=== PATIENT | male | born 1945 | race African-American/Black ===

== ENCOUNTER 2017-08-14 15:50 | Observation (INO) ==
[2017-08-14 17:37] LABS: Basophils % 0.3 %; Eosinophils # 0.2 K/mcL (0.0-0.6); Eosinophils % 2.5 %; Hematocrit 26.3 % (37.5-50.1); Immature Granulocytes % 1.5 % (0-4); Lymphocytes # 1.1 K/mcL (0.6-4.6); Mean Corpuscular HGB Conc 30.4 g/dL (31.6-35.5); Mean Corpuscular Hemoglobin 24.2 pg (28.0-33.3); Mean Corpuscular Volume 79.5 fL (83.0-100.0); Monocytes # 0.5 K/mcL (0.0-1.3); Monocytes % 7.7 %; Neutrophils # 4.2 K/mcL (1.6-8.9); Platelet Count 148 K/mcL (140-400); Red Blood Count 3.31 M/mcL (4.19-5.50); Red Cell Distribution Width 16.4 % (11.5-14.5)
[2017-08-14 17:55] LABS: Calcium 8.7 mg/dL (8.6-10.8); Potassium 4.4 mEq/L (3.5-4.5)
--- NOTE | 2017-08-14 18:06 | Emergency Department Note ---
START Narrative - START START: I examined this patient and my medical decision-making was reviewed with the LEAD MAINTENANCE TECHNICIAN/PA/Advanced Practice Nurse/Resident Physician. I agree with the documented findings, disposition and treatment plan as described except to the extent set forth below. ED attending note: Patient seen with emergency medicine resident Dr. Omar Santoyo. We independently evaluated the patient. We independently had face-to- face contact with the patient. Please see a copy of his note for details of the history and physical, evaluation, management and disposition of this emergency Department patient. Briefly: A 71-year-old -Polish male end-stage renal disease on both peritoneal and hemodialysis weekly sent over by Dr. Schroeder his weft straightener for "blood loss", and some difficulty breathing. Patient has clear lungs. His abdomen is surgically benign and the peritoneal dialysis site is free and clear of infection. Patient will have repeat screening labs. And if need be a recheck of his fecal occult blood stool. Disposition pending.
--- NOTE | 2017-08-14 18:35 | Emergency Department Note ---
Disposition Clinical Impression: Elevated troponin I level, Dyspnea on exertion, ESRD on peritoneal dialysis Anemia Qualifiers: Anemia type: due to chronic kidney disease Chronic kidney disease stage: on chronic dialysis Qualified Code(s): N18.6 - End stage renal disease Disposition: Admitted As Inpatient Condition: Fair Time of Disposition: 20:37 SOB HPI - General Chief Complaint: ED Shortness of Breath/Dyspnea Stated Complaint: RUTH, blood loss per PCP Time Seen by Provider: 08/14/17 17:42 Source: patient Limitations: no limitations Nursing Notes Reviewed: Yes Vital Signs Reviewed: Yes - History of Present Illness 71-year-old male presents secondary to direction from his parenting skills instructor Dr. Schroeder for blood loss anemia. Patient has concerns for possible GI blood loss with the high-risk history of previous colonic polyps that were extremely large 1 year ago that required 4 hours to remove. Patient states he has been having some constipation and some dark stools. Patient is also having some lightheadedness and shortness of breath with exertion. Patient is on peritoneal dialysis daily and hemodialysis every Thursday. Patient denies any fevers chills, nausea, vomiting, diarrhea. Patient denies abdominal pain or chest pain. - Related Data Home Medications Medication Instructions Recorded Confirmed Allopurinol [Zyloprim] 100 mg PO QPM 05/02/15 08/14/17 Amlodipine [Norvasc] 10 mg PO QAM 05/02/15 08/14/17 Calcium Acetate [Phos-LO] 2,001 mg PO TIDWM 05/02/15 08/14/17 Cholecalciferol (Vitamin D3) 1,000 unit PO DAILY 05/02/15 08/14/17 [Vitamin D] Labetalol [Trandate] 200 mg PO BID 05/02/15 08/14/17 Levothyroxine [Synthroid] 137 mcg PO QAM 05/02/15 08/14/17 Pravastatin Sodium 10 mg PO QPM 05/02/15 08/14/17 Furosemide [Lasix] 80 mg PO BID 04/09/17 08/14/17 Losartan Potassium [Cozaar] 50 mg PO DAILY 04/09/17 08/14/17 Calcium Carbonate/Vitamin D3 1 mg PO DAILY 04/28/17 08/14/17 [Oyster Shell 250 mg + Vit D Tb] Epoetin Eagle [Epogen] 2,000 unit IJ QWEEK 04/28/17 08/14/17 Iron Fum/FA/Vit Bcomp,C [Dialyvite 1 each PO DAILY 04/28/17 08/14/17 800 with Iron Tab] Gabapentin [Neurontin] 800 mg PO TID PRN 08/14/17 08/14/17 Allergies Allergy/AdvReac Type Severity Reaction Status Date / Time No Known Allergies Allergy Verified 08/14/17 16:14 All systems ED: reviewed and negative except as stated. Review of Systems: As Per HPI Constitutional: Reports: weakness. Denies: fever Eyes: Reports: vision change (Blurred vision with exertion) ENT ED: Reports: ear pain Cardiovascular: Reports: dyspnea on exertion. Denies: chest pain Respiratory: Denies: cough, dyspnea, wheezes Gastrointestinal: Denies: abdominal pain, nausea, vomiting, diarrhea Genitourinary: Denies: urgency, dysuria, frequency, hematuria Musculoskeletal: Denies: back pain Integumentary: Denies: rash Neurological: Denies: headache Psychiatric: Denies: anxiety Endocrine: Reports: fatigue Past Medical History - Past Medical History Attestation: Yes The following information was validated with the patient. Source: patient Medical history: Reports: arthritis, cancer, dialysis, hypertension, renal disease, other Surgical history: Reports: cataract, thyroidectomy, other Psychiatric history: Reports: no psych history - Social History Smoking Status: Former smoker Smokeless Tobacco Status: No Alcohol use: Reports: none Drug use: Reports: none Physical Exam Vital Signs Temperature 98.6 F 08/14/17 16:10 Pulse Rate 76 08/14/17 16:10 Respiratory Rate 20 08/14/17 16:10 Blood Pressure 167/75 08/14/17 16:10 O2 Sat by Pulse Oximetry 97 08/14/17 16:10 Temperature 98.6 F 08/14/17 16:10 Pulse Rate 76 08/14/17 16:10 Respiratory Rate 20 08/14/17 16:10 Blood Pressure 167/75 08/14/17 16:10 O2 Sat by Pulse Oximetry 97 08/14/17 16:10 Oxygen Delivery Oxygen Delivery Room Air 71-year-old male who is alert and oriented 3 does not appear to be in any acute distress. Patient has no noticeable pallor. Patient has some conjunctival pallor. Patient is able to sit up without lightheadedness but feels short of breath and has lightheadedness when he is walking. Patient nontoxic appearing Vital signs show no abnormalities except for hypertension 167/75. - General Limitations: no limitations General appearance: alert, in no apparent distress - Head Head exam: atraumatic, normocephalic, normal inspection - Eye Eye exam: Present: normal appearance, PERRL, EOMI - ENT ENT exam: normal exam, normal oropharynx, mucous membranes moist - Neck Neck exam: Present: normal inspection, full ROM, trachea midline - Chest Chest inspection: Present: normal inspection, symmetric chest wall rise - Respiratory Respiratory exam: Present: normal lung sounds bilaterally - Cardiovascular Cardiovascular exam: Present: regular rate, normal rhythm, normal heart sounds - Abdominal Exam Abdominal exam: Present: soft, Non-Tender, other (Peritoneal dialysis site shows no signs of inflammation and is clean) Course Vital Signs Temperature 98.6 F 08/14/17 16:10 Pulse Rate 76 08/14/17 16:10 Respiratory Rate 20 08/14/17 16:10 Blood Pressure 167/75 08/14/17 16:10 O2 Sat by Pulse Oximetry 97 08/14/17 16:10 Temperature 98.4 F 08/14/17 21:25 Pulse Rate 78 08/14/17 21:25 Respiratory Rate 16 08/14/17 21:25 Blood Pressure 185/75 08/14/17 21:25 O2 Sat by Pulse Oximetry 99 08/14/17 21:25 Oxygen Delivery Oxygen Delivery Room Air Shortness of Breath/Dyspnea - [facility] Narrative Medical decision making narrative: Patient presents with chronic anemia but is currently symptomatic with lightheadedness and shortness of breath with exertion. Patient has a history of rectal bleeding but currently has a negative fecal occult blood test. Patient's current hemoglobin is 8.0 which is slightly up from 7.7 earlier today. Patient has no visible palpable but has a history of unusual colonic polyps requiring extensive procedures in the past to clear. Patient has been complaining of intermittent dark stools as well. Patient has no elevation of troponin at 0.04 Patient's vitals are currently stable and patient is doing well and is chest pain-free. Patient did not complain of any chest pain around his evaluation. Current plan is for medical admission to the hospital for evaluation. Patient understands and accepts decision for admission. Dr. Evans the hospital except the patient for admission at 2033 hrs. - Lab Data Lab results reviewed: Yes I reviewed the patient's lab results. Lab results narrative: Short CBC 08/14/17 Range/Units 17:29 WBC 6.0 (4.3-11.1) K/mcL Hgb 8.0 L (12.9-16.9) g/dL Hct 26.3 L (37.5-50.1) % Plt Count 148 (140-400) K/mcL Neutrophils # 4.2 (1.6-8.9) K/mcL BMP 08/14/17 Range/Units 17:29 Sodium 142 (136-145) mEq/L Potassium 4.4 (3.5-4.5) mEq/L Chloride 99 (98-109) mEq/L Carbon Dioxide 30 H (19-29) mEq/L BUN 42 H (8-26) mg/dL Creatinine 12.03 H (0.72-1.25) mg/dL Glucose 87 (70-99) mg/dL Calcium 8.7 (8.6-10.8) mg/dL Cardiac Enzymes 08/14/17 Range/Units 17:29 Troponin I 0.04 H* (0-0.03) ng/mL Result diagrams: 08/14/17 17:29 08/14/17 17:29 Lab Results 08/14/17 08/14/17 08/14/17 Range/Units 17:29 17:29 17:29 WBC 6.0 (4.3-11.1) K/mcL RBC 3.31 L (4.19-5.50) M/mcL Hgb 8.0 L (12.9-16.9) g/dL Hct 26.3 L (37.5-50.1) % MCV 79.5 L (83.0-100.0) fL MCH 24.2 L (28.0-33.3) pg MCHC 30.4 L (31.6-35.5) g/dL RDW 16.4 H (11.5-14.5) % Plt Count 148 (140-400) K/mcL MPV 10.0 (9.4-12.4) fL Immature Gran % 1.5 (0-4) % Seg Neutrophils % 70.0 % Lymphocytes % 18.0 % Monocytes % 7.7 % Eosinophils % 2.5 % Basophils % 0.3 % Neutrophils # 4.2 (1.6-8.9) K/mcL Lymphocytes # 1.1 (0.6-4.6) K/mcL Monocytes # 0.5 (0.0-1.3) K/mcL Eosinophils # 0.2 (0.0-0.6) K/mcL Basophils # 0.0 (0.0-0.2) K/mcL Sodium 142 (136-145) mEq/L Potassium 4.4 (3.5-4.5) mEq/L Chloride 99 (98-109) mEq/L Carbon Dioxide 30 H (19-29) mEq/L BUN 42 H (8-26) mg/dL Creatinine 12.03 H (0.72-1.25) mg/dL Est GFR ( Amer) 5 L (> 60) Est GFR (Non-Af Amer) 4 L (> 60) BUN/Creatinine Ratio 3 L (6-26) Glucose 87 (70-99) mg/dL Calculated Osmolality 304 H (280-300) Calcium 8.7 (8.6-10.8) mg/dL Magnesium 2.1 (1.6-2.6) mg/dL Troponin I 0.04 H* (0-0.03) ng/mL Stool Occult Blood (Negative) Blood Type Antibody Screen 08/14/17 08/14/17 Range/Units 17:29 18:30 WBC (4.3-11.1) K/mcL RBC (4.19-5.50) M/mcL Hgb (12.9-16.9) g/dL Hct (37.5-50.1) % MCV (83.0-100.0) fL MCH (28.0-33.3) pg MCHC (31.6-35.5) g/dL RDW (11.5-14.5) % Plt Count (140-400) K/mcL MPV (9.4-12.4) fL Immature Gran % (0-4) % Seg Neutrophils % % Lymphocytes % % Monocytes % % Eosinophils % % Basophils % % Neutrophils # (1.6-8.9) K/mcL Lymphocytes # (0.6-4.6) K/mcL Monocytes # (0.0-1.3) K/mcL Eosinophils # (0.0-0.6) K/mcL Basophils # (0.0-0.2) K/mcL Sodium (136-145) mEq/L Potassium (3.5-4.5) mEq/L Chloride (98-109) mEq/L Carbon Dioxide (19-29) mEq/L BUN (8-26) mg/dL Creatinine (0.72-1.25) mg/dL Est GFR ( Amer) (> 60) Est GFR (Non-Af Amer) (> 60) BUN/Creatinine Ratio (6-26) Glucose (70-99) mg/dL Calculated Osmolality (280-300) Calcium (8.6-10.8) mg/dL Magnesium (1.6-2.6) mg/dL Troponin I (0-0.03) ng/mL Stool Occult Blood Negative (Negative) Blood Type O POSITIVE Antibody Screen NEGATIVE - Radiology Data Radiology results reviewed: Yes I reviewed the patient's radiology results. Chest X-Ray 08/14/17 17:10 IMPRESSION: Stable study. D/ / Lakesha Kelley Cha, MD / Lakesha Kelley Cha, MD Interpreting Provider: Lakesha Kelley Cha, MD - EKG Data EKG attestation: Yes I reviewed and interpreted this EKG. EKG results narrative: EKG taken at summer at 1741 hrs. shows sinus rhythm at a rate of [address] elevations or depressions and a leads, a QRS widening or QT prolongation. EKG does show some left ventricular hypertrophy was no previous EKG for comparison.
[2017-08-14 19:14] LABS: Magnesium 2.1 mg/dL (1.6-2.6)
--- NOTE | 2017-08-14 21:18 | Internal Med History&Physical ---
<Monique Gao - Last Filed: 08/14/17 23:28> Date of Encounter: 08/14/17 Time of Encounter: 21:17 Assessment and Plan (1) Dyspnea Current visit: No Status: Acute Patient reports exertional shortness of breathe for 6 days with associated weakness. He admits dysuria(chronic) and runny nose. Denies fever, chills, cough , wheeze, abdominal pain, chest pain, orthopnea. Unclear etiology. Maybe viral respiratory. SBP unlikley but will have sample sent in AM ESRD with anemia. Hgb 8.0 which is baseline stool occult negative x2 CXR- stable Cath 04/28/2017 showed no artery blockage. EF 65% Upon PD tomorrow, sample of peritoneal fluid needs to be sent for testing viral panel ordered orthostatics PT/OT tele monitoring urinalysis Qualifiers: Dyspnea type: dyspnea on exertion Qualified Code(s): R06.09 - Other forms of dyspnea (2) Anemia Current visit: Yes Status: Acute ESRD with chronic anemia. Hgb 8.0 which is baseline. Upon admission it was 7.7 stool occult negative x2 Patient reported 3x he had a "dark stool" in last week. He takes dialyvite which could cause dark stool. Denies hematachezia and syncope. He has internal and external hemorroids. no active bleeding colonoscopy 10/16/[address] Melendez showed 5 total non bleeding polyps that were removed. monitor H&H monitor for bleeding Qualifiers: Anemia type: due to chronic kidney disease Chronic kidney disease stage: on chronic dialysis Qualified Code(s): N18.6 - End stage renal disease; D63.1 - Anemia in chronic kidney disease; D63.1 - Anemia in chronic kidney disease; Z99.2 - Dependence on renal dialysis; Z99.2 - Dependence on renal dialysis; Z99.2 - Dependence on renal dialysis; Z99.2 - Dependence on renal dialysis (3) ESRD on peritoneal dialysis Current visit: Yes Status: Chronic ESRD on peritoneal dialysis and HD on Wednesdays Nephrology following SCr 12 Upon PD tomorrow, sample of peritoneal fluid needs to be sent for testing (4) Elevated troponin I level Current visit: Yes Status: Acute elevated troponin 0.04 most likely secondary to ESRD. Patient denies chest pain. EKG showed NSR, no ST changes, and left ventricular hypertrophy. trend troponin (5) Hypertension Current visit: Yes Status: Acute History of hypertension 167/75 continue to monitor continue home medications Qualifiers: Hypertension type: essential hypertension Qualified Code(s): I10 - Essential (primary) hypertension (6) Hyperlipidemia Current visit: Yes Status: Acute continue home medications Qualifiers: Qualified Code(s): E78.5 - Hyperlipidemia, unspecified (7) DVT prophylaxis Current visit: No Status: Acute ambulate TID Internal Medicine - H&P: HPI Chief complaint: shortness of breathe Admitted From: Emergency Dept Plans for Post Hospital Care: Home History of present illness: Mr. Kothari is a 71 year old male with a past medical history of CKD on dialysis , HTN, HLD, diabetes, left nephrectomy due to cancer who presented to [facility] ED complaining of shortness of breathe that began last Thursday (6 days ago). It is worsened by exertion and better with rest. He was at his nephrology appointment with Dr. Schroeder whom insisted he go to ED because his Hgb had decreased and he was short of breathe. He admits weakness, dizziness , pain with defection, and melena 3xs, dysuria(chronic). He reports that he does have external hemorrhoids and takes dialyvite. He denied hematechezia, syncope, chest pain, wheezing, cough, abdominal pain, nausea, vomiting, fever, chills, orthopnea. He reported that his last colonoscopy 10/16/[address] Melendez had 5 non bleeding polyps that were resected and internal hemorrhoids. He stated he had another polyp that he had to go to [place] to have removed due to the large size. He has hemodialysis on Wednesdays and has a peritoneal dialysis catheter in place which he uses every night. He denies recent travel, sick contacts. In ED stool occult test negative. Hgb was 7.7 and now 8. Afebrile, WBC WNL. EKG showed NSR, no ST changes, and left ventricular hypertrophy. Past Med Surg Social Fam HX - Past Medical History Medical history: arthritis, cancer, dialysis, hyperlipidemia, hypertension, renal disease, other Psychiatric history: no psych history - Past Surgical History Surgical History: cataract, thyroidectomy, other (left nephrectomy) - Social History Smoking Status: Former smoker Smokeless Tobacco Status: No Alcohol use: none Drug use: none - Family History Mother Family Member Ethnicity: Non- Living Status: Hx Family Cardiac Disorders: No Hx Family Respiratory Disorders: No Hx Family Cancer: No Hx Family GI Disorders: No Hx Family Endocrine Disorder: Yes (diabetes) Father Living Status: Hx Family Cardiac Disorders: Yes (OR, CAD) Hx Family Respiratory Disorders: No Hx Family Cancer: No Hx Family GI Disorders: No Hx Family Endocrine Disorder: Yes (diabetes) Internal Medicine - H&P: Meds Allopurinol [Zyloprim] 100 mg PO QPM 05/02/15 [History] Amlodipine [Norvasc] 10 mg PO QAM 05/02/15 [History] Calcium Acetate [Phos-LO] 2,001 mg PO TIDWM 05/02/15 [History] Cholecalciferol (Vitamin D3) [Vitamin D] 1,000 unit PO DAILY 05/02/15 [History] Labetalol [Trandate] 200 mg PO BID 05/02/15 [History] Levothyroxine [Synthroid] 137 mcg PO QAM 05/02/15 [History] Pravastatin Sodium 10 mg PO QPM 05/02/15 [History] Furosemide [Lasix] 80 mg PO BID 04/09/17 [History] Losartan Potassium [Cozaar] 50 mg PO DAILY 04/09/17 [History] Calcium Carbonate/Vitamin D3 [Oyster Shell 250 mg + Vit D Tb] 1 mg PO DAILY [History] Epoetin Eagle [Epogen] 2,000 unit IJ QWEEK 04/28/17 [History] Iron Fum/FA/Vit Bcomp,C [Dialyvite 800 with Iron Tab] 1 each PO DAILY 04/28/17 [ History] Gabapentin [Neurontin] 800 mg PO TID PRN 08/14/17 [History] 3 Allergy/AdvReac Type Severity Reaction Status Date / Time No Known Allergies Allergy Verified 08/14/17 16:14 All Systems PM: A 10-system review of systems was performed and is negative for pertinent findings except as documented above in the HPI. - Constitutional Constitutional: weakness, no chills, no fever(s) - EENT Nose, mouth and throat: nasal discharge, no sinus pressure, no sore throat - Cardiovascular Cardiovascular ROS IM: dyspnea on exertion, no chest pain, no diaphoresis, no edema, no palpitations, no syncope - Respiratory Respiratory: no cough, no hemoptysis, no wheezing - Gastrointestinal Gastrointestinal: constipation, melena, no abdominal pain, no cramping, no diarrhea, no hematemesis, no hematochezia, no nausea, no vomiting - Genitourinary Genitourinary ROS male: dysuria, no hematuria, no urinary frequency, no urinary incontinence - Musculoskeletal Musculoskeletal ROS IM: no joint swelling, no muscle cramps - Integumentary Integumentary IM: no rash, no skin ulcer - Constitutional Vitals: Temp Pulse Resp BP Pulse Ox 98.6 F 71 12 176/90 96 08/14/17 16:10 08/14/17 19:15 08/14/17 19:15 08/14/17 19:15 08/14/17 19:15 General appearance: Present: A&O X 3, pleasant, no acute distress - Head Head exam: Present: atraumatic, normocephalic - Eye Eye exam: Present: conjunctival injection, normal appearance. Absent: scleral icterus - ENT ENT exam: Present: mucous membranes moist - Neck Neck exam general surgery: Present: supple, trachea midline. Absent: lymphadenopathy, tenderness - Respiratory Respiratory exam: Present: CTAB. Absent: rales, rhonchi, wheezes - Cardiovascular Cardiovascular exam: Present: RRR, +S1, +S2. Absent: clicks - GI/Abdominal GI/Abdominal exam: Present: distended, normal bowel sounds, soft, no peritoneal signs. Absent: guarding, rebound, tenderness - Extremities Exam Extremities exam: Present: normal inspection. Absent: calf tenderness, pedal edema - Skin Skin exam: Present: dry, intact Internal Med - H&P Results - Labs CBC & Chem 7: 08/14/17 17:29 08/14/17 17:29 <Zoila Evans - Last Filed: 08/15/17 01:23> Date of Encounter: 08/15/17 Internal Medicine - H&P: HPI History of present illness: Mr. Kothari is a 71 year old male All Systems PM: A 10-system review of systems was performed and is negative for pertinent findings except as documented above in the HPI. - Constitutional Vitals: Temp Pulse Resp BP Pulse Ox 98.7 F 76 17 154/79 97 08/14/17 23:39 08/14/17 23:39 08/14/17 23:39 08/14/17 23:39 08/14/17 23:39 Internal Med - H&P Results - Labs CBC & Chem 7: 08/14/17 17:29 08/14/17 17:29 - Attending Attestation I examined this patient and my medical decision-making was reviewed with the Resident Physician. I agree with the documented findings, disposition and treatment plan as described except to the extent set forth below. Sent to ED for investigation of dizziness, CALVO Hx of ESRD on PD and also on once weekly HD SOB x 1 week , winded after ambulating 1 block, No fever, No chills Reported runny nose x 1 week General - AAO x 3. Morbid obesity Psych - Appropriate affect/speech. No agitation Neuro - No gross peripheral or central neuro deficits on inspection Heart - Sinus. RRR. S1 and S2 present. No added HS/murmurs appreciated. No elevated JVD appreciated. Lung - Adequate air entry b/l, No crackles/wheezes appreciated GI - Soft, non-tender. No hepatosplenomegaly/ascites. BS+ - No CVA/suprapubic tenderness or palpable bladder distension XR/XR chest 2V IMPRESSION: Stable study. A/P CALVO - CXR w/o acute findings - check TTE - doubt PE but due to lack of objective findings for symptoms , check V/Q scan, doppler US legs - send RVP given runny nose x 1 week prior - tele, pulse ox, ambulate Anemia - related to ESRD - ANDREA with HD - FOBT in the ED reported negative - no report of gross GIB at current - doubt he is symptomatic from anemia ESRD - on PD and HD together
[2017-08-14] MEDS ORDERED: Naloxone 0.4 MG/ML INJ IVP PRN (21:19)
[2017-08-14] MEDS ORDERED: Acetaminophen 325 MG TABLET PO PRN (23:24)
[2017-08-15 00:51] LABS: Adenovirus Not Detected (Not Detect); Bordetella Pertussis Not Detected (Not Detect); Chlamydophila pneumoniae Not Detected (Not Detect); Coronavirus 229E Not Detected (Not Detect); Coronavirus HKU1 Not Detected (Not Detect); Coronavirus NL63 Not Detected (Not Detect); Coronavirus OC43 Not Detected (Not Detect); Human Metapneumovirus Not Detected (Not Detect); Human Rhinovirus/Enterovirus Not Detected (Not Detect); Influenza A Subtype 2009 H1 Not Detected (Not Detect); Influenza A Untypeable Not Detected (Not Detect); Influenza B Not Detected (Not Detect); Mycoplasma pneumoniae Not Detected (Not Detect); Parainfluenza Virus 1 Not Detected (Not Detect); Parainfluenza Virus 2 Not Detected (Not Detect); Parainfluenza Virus 3 Not Detected (Not Detect); Parainfluenza Virus 4 Not Detected (Not Detect); Respiratory Syncytial Virus Not Detected (Not Detect)
[2017-08-15] MEDS ORDERED: D5% in Water 1,000 ML IVC PRN (03:45)
[2017-08-15] MEDS ORDERED: Dextrose Gel 15 GM/37.5 ML TUBE PO PRN ×2 (03:45)
[2017-08-15] MEDS ORDERED: *HR* Dextrose 50 % in Water (Syg) 50 ML SYRINGE IVP PRN (03:45)
[2017-08-15 06:59] LABS: Basophils % 0.2 %; Eosinophils # 0.1 K/mcL (0.0-0.6); Eosinophils % 2.3 %; Hematocrit 23.3 % (37.5-50.1); Hemoglobin 7.1 g/dL (12.9-16.9); Immature Granulocytes % 1.7 % (0-4); Lymphocytes % 19.9 %; Mean Corpuscular HGB Conc 30.5 g/dL (31.6-35.5); Mean Corpuscular Hemoglobin 23.7 pg (28.0-33.3); Mean Corpuscular Volume 77.9 fL (83.0-100.0); Mean Platelet Volume 9.1 fL (9.4-12.4); Monocytes # 0.4 K/mcL (0.0-1.3); Monocytes % 8.3 %; Neutrophils # 3.5 K/mcL (1.6-8.9); Platelet Count 140 K/mcL (140-400); Red Blood Count 2.99 M/mcL (4.19-5.50); Red Cell Distribution Width 16.3 % (11.5-14.5); Segmented Neutrophils % 67.6 %
[2017-08-15 07:10] LABS: Calcium 8.1 mg/dL (8.6-10.8); Potassium 4.6 mEq/L (3.5-4.5)
[2017-08-15] MEDS: Insulin LISPRO 300 UNITS/3 ML VIAL SQ SCH ×3 (07:28→16:44)
[2017-08-15] MEDS: amLODIPine 5 MG TABLET PO SCH (09:02)
[2017-08-15] MEDS: Furosemide 40 MG TABLET PO SCH ×2 (09:02→16:43)
--- NOTE | 2017-08-15 12:39 | Nephrology Consult Note ---
Date of Encounter: 08/15/17 Time of Encounter: 11:45 Assessment and Plan (1) ESRD on peritoneal dialysis Current Visit: Yes Status: Chronic ESRD on PD for many years. He said that recently his clearance has not been sufficient, so his primary pole classifier added once weekly HD (every Thursday). Anemia: multifactorial. No reported blood loss, per pt, but he did tell me that he was taken off EPO about 1 month ago, and then his next Hgb returned lower. He said he was sent to the ER because the Hgb level as drawn by Amanda was near 7 and he had symptoms of generalized fatigue for the last few weeks. I recommend resume outpatient EPO, but will give a dose Aranesp while here ( Aranesp is on our inpatient formulary). His Hgb is not quite low enough for PRBC transfusion. Will defer to primary team if he needs a GI work up. He denied any signs of peritonitis, but to be extra cautious, will have him drawn the PD fluid that was left in from his last treatment to test it for culture, cell count and diff. PD: will resume a cycler here and provide a modification to his typical PD prescription based upon the supplies available to me on the inpt formulary. Overall, though, he is doing relatively well. Thank you for consulting the [facility] group. Will follow with you. (2) Anemia in chronic kidney disease Current Visit: Yes Status: Chronic Qualifiers: Chronic kidney disease stage: on chronic dialysis Qualified Code(s): N18.6 - End stage renal disease; D63.1 - Anemia in chronic kidney disease; D63.1 - Anemia in chronic kidney disease; Z99.2 - Dependence on renal dialysis; Z99.2 - Dependence on renal dialysis; Z99.2 - Dependence on renal dialysis; Z99.2 - Dependence on renal dialysis (3) Fatigue Current Visit: Yes Status: Acute Qualifiers: Qualified Code(s): R53.83 - Other fatigue (4) Hypertension Current Visit: Yes Status: Acute Qualifiers: Hypertension type: essential hypertension Qualified Code(s): I10 - Essential (primary) hypertension (5) Peripheral edema Current Visit: Yes Status: Chronic History of Present Illness - Reason for Consult Consult date: 08/14/17 end stage renal disease Requesting physician: Stan Finn - Chief Complaint Fatigue, anemia, ESRD - History of Present Illness Pola Kothari is a very pleasant 71 y/o AAM with a pmh of ESRD on both PD and HD, anemia of CKD and et al who presented to the ER yesterday evening as directed by his primary pole classifier. He said he was told that his anemia and fatigue were the reasons for admission. Fatigue started a few weeks ago. His primary pole classifier is Dr. Schroeder. He said that recently he was placed on once weekly HD (on Thursday) by Dr. Schroeder due to poor clearance on PD. He denied F/C /N/V/D. He denied abdominal pain or any changes to his PD fluid (no fibrin or blood he affirmed). He told me that his nocturnal cycler is used 6 of 7 nights per week with the following regimen: 1.5% dextrose x2 five liter bags, 2.5% dextose x1 five liter bag, plus Icodextran x1 2500mL bag -- of of which is per night, he said. He did not affirm any new AVF problems such as prolonged bleeding; and no PD catheter exist bleeding or infection. Only one episode of peritonitis in the past, which was about 1 yr ago he thought. I reviewed Dr. Schroeder's note in the [facility] notes: no mention of new problems or comments regarding anemia. He has a daytime dwelling in currently, he reported. The patient told me that he was taken off EPO about 1 month ago, then his blood counts started to fall. He denied ever having a reaction to EPO or any allergy to it, but he thinks it was stopped since his Hgb was in the 11 range. Past Med Surg Social Fam HX - Past Medical History Medical history: arthritis, cancer, dialysis, hyperlipidemia, hypertension, renal disease, other Psychiatric history: no psych history - Past Surgical History Surgical History: cataract, thyroidectomy, other (left nephrectomy) - Social History Smoking Status: Former smoker Smokeless Tobacco Status: No Alcohol use: none Drug use: none - Family History Mother Family Member Ethnicity: Non- Living Status: Hx Family Cardiac Disorders: No Hx Family Respiratory Disorders: No Hx Family Cancer: No Hx Family GI Disorders: No Hx Family Endocrine Disorder: Yes (diabetes) Father Living Status: Hx Family Cardiac Disorders: Yes (NC, CAD) Hx Family Respiratory Disorders: No Hx Family Cancer: No Hx Family GI Disorders: No Hx Family Endocrine Disorder: Yes (diabetes) Medications and Allergies Allopurinol [Zyloprim] 100 mg PO QPM 05/02/15 [History] Amlodipine [Norvasc] 10 mg PO QAM 05/02/15 [History] Calcium Acetate [Phos-LO] 2,001 mg PO TIDWM 05/02/15 [History] Cholecalciferol (Vitamin D3) [Vitamin D] 1,000 unit PO DAILY 05/02/15 [History] Labetalol [Trandate] 200 mg PO BID 05/02/15 [History] Pravastatin Sodium 10 mg PO QPM 05/02/15 [History] Furosemide [Lasix] 80 mg PO BID 04/09/17 [History] Losartan Potassium [Cozaar] 50 mg PO DAILY 04/09/17 [History] Calcium Carbonate/Vitamin D3 [Oyster Shell 250 mg + Vit D Tb] 1 mg PO DAILY [History] Epoetin Eagle [Epogen] 2,000 unit IJ QWEEK 04/28/17 [History] Iron Fum/FA/Vit Bcomp,C [Dialyvite 800 with Iron Tab] 1 each PO DAILY 04/28/17 [ History] Gabapentin [Neurontin] 800 mg PO TID PRN 08/14/17 [History] Levothyroxine Sodium [Synthroid] 274 mcg PO DAILY 08/15/17 [History] 3 Allergy/AdvReac Type Severity Reaction Status Date / Time No Known Allergies Allergy Verified 08/14/17 16:14 Review of Systems All Systems: reviewed and no additional remarkable complaints except as stated Exam - Vital Signs Vital signs: Initial Vital Signs Temp Pulse Resp BP Pulse Ox 98.6 F 76 20 167/75 97 08/14/17 16:10 08/14/17 16:10 08/14/17 16:10 08/14/17 16:10 08/14/17 16:10 Vital Signs - Last 8 Hours Temp Pulse Resp BP BP BP BP 08/15/17 09:22 160/73 167/83 181/83 08/15/17 07:06 98.3 F 77 15 156/84 Pulse Ox 08/15/17 09:22 08/15/17 07:06 97 Intake and Output 08/14/17 08/15/17 08/15/17 23:59 07:59 15:59 Intake Total 480 / 480 Output Total 0 / 0 Balance 480 / 480 Intake: Oral 480 / 480 Output: Urine 0 / 0 Other: Meal Breakfast Percent of Meal Consumed 100% Weight 142.541 kg 144.152 kg Blood Glucose* 92 Patient Weight 08/15/17 23:59 Weight 144.152 kg - General Appearance General appearance: well-developed, well-nourished, appears started age, obese EENT: ATNC, PERRL, mucous membranes moist Neck: no carotid bruit, supple Respiratory: clear Cardiology: edema (trace pretibial pitting edema b/l), normal S1, normal S2 - Dialysis Access Dialysis Vascular Access: Arteriovenous Fistula (left UE AVF with excellent thrill/bruit) thrill: Yes bruit: Yes Additional Comments: PD catheter had dressing that was C/D/I Gastrointestinal: normoactive bowel sounds, no tenderness, no guarding, obese Integumentary: no rash, warm and dry Neurologic: no focal deficit, no asterixis, alert and oriented x3 Musculoskeletal: no deformities, no erythema Psychiatric: mood/affect appropriate Results - Lab Results 08/15/17 06:49 08/15/17 06:49 Most recent lab results Calcium 8.1 mg/dL (8.6-10.8) L 08/15/17 06:49 Magnesium 2.1 mg/dL (1.6-2.6) 08/14/17 17:29 I reviewed the labs, meds, vitals, progress notes, and I also logged into the [facility] system via the [employer] mobile ryan and read Dr. Schroeder's note at [facility] yesterday: there was no mention of anemia or sending him to the ER. Consult Discharge Plan - Plan Referrals: Yossi Andres MD [Primary Care Provider] -
[2017-08-15] MEDS ORDERED: Darbepoetin 150 MCG/0.3 ML SYRINGE SQ SCH (13:00)
[2017-08-15 13:21] LABS: Hepatitis B Surface Antigen Nonreactive (Nonreactive)
--- NOTE | 2017-08-15 13:59 | Internal Med Progress Note ---
Date of Encounter: 08/15/17 Time of Encounter: 13:54 - Time Spent With Patient (1) Anemia in chronic kidney disease Current Visit: Yes Status: Chronic Qualifiers: Chronic kidney disease stage: on chronic dialysis Qualified Code(s): N18.6 - End stage renal disease; D63.1 - Anemia in chronic kidney disease; D63.1 - Anemia in chronic kidney disease; Z99.2 - Dependence on renal dialysis; Z99.2 - Dependence on renal dialysis; Z99.2 - Dependence on renal dialysis; Z99.2 - Dependence on renal dialysis Acute on chronic anemia/symptomatic anemia, taken off EPO about 1 month ago Transfuse 1 unit of red blood cells. Hemoccult was negative. Recheck CBC in the morning Nephrology managing anemia with Aranesp and will continue equal as an outpatient (2) ESRD on peritoneal dialysis Current Visit: Yes Status: Chronic ESRD on PD and currently on weekly hemodialysis Nephrology managing consultant clinical professor, peritoneal fluid to be sent for testing (3) Fatigue Current Visit: Yes Status: Acute (4) Hypertension Current Visit: Yes Status: Acute Qualifiers: Hypertension type: essential hypertension Qualified Code(s): I10 - Essential (primary) hypertension Continue labetalol, amlodipine, losartan, hydralazine IV as needed Lasix 80 mg twice a day (5) Peripheral edema Current Visit: Yes Status: Chronic May discharge in the morning if stable - Subjective Interval history: Feels very tired, no active bleeding, denies any chest pain, less short of breath, no fevers, still makes urine in small amounts, less than a cup per day, no diarrhea - Constitutional Vitals: Temp Pulse Resp BP Pulse Ox 97.5 F L 70 18 147/82 96 08/15/17 12:38 08/15/17 12:38 08/15/17 12:38 08/15/17 12:38 08/15/17 12:38 General appearance: Present: A&O X 3, morbidly obese, pleasant, no acute distress - Head Head exam: Present: atraumatic, normocephalic - Eye Eye exam: Present: PERRL, conjuntiva pink, sclera anicteric Pupils: Present: PERRL - Neck Neck exam general surgery: Present: supple, trachea midline. Absent: lymphadenopathy - Respiratory Respiratory exam: Present: decreased breath sounds, CTAB. Absent: accessory muscle use, rales, rhonchi, wheezes - Cardiovascular Cardiovascular exam: Present: RRR, +S1, +S2. Absent: diastolic murmur, gallop, rubs, systolic murmur - GI/Abdominal GI/Abdominal exam: Present: normal bowel sounds, soft, no peritoneal signs. Absent: distended, tenderness Additional comments: Peritoneal catheter in place - Extremities Exam Extremities exam: Present: warm, radial pulses palpable and symmetrical. Absent : calf tenderness, cyanotic, pedal edema Additional comments: Left upper extremity AV fistula - Neurological Exam Neurological exam: Present: CN II-XII intact, oriented X3, no focal deficits. Absent: pronater drift, facial droop, speech deficit - Skin Skin exam: Present: dry, intact Internal Medicine: Result - Labs CBC & Chem 7: 08/15/17 06:49 08/15/17 06:49 Labs: Short CBC 08/15/17 Range/Units 06:49 WBC 5.2 (4.3-11.1) K/mcL Hgb 7.1 L (12.9-16.9) g/dL Hct 23.3 L (37.5-50.1) % Plt Count 140 (140-400) K/mcL Neutrophils # 3.5 (1.6-8.9) K/mcL BMP 08/15/17 06:49 Sodium 141 Potassium 4.6 H Chloride 100 Carbon Dioxide 27 BUN 46 H Creatinine 12.85 H Glucose 79 Calcium 8.1 L Cardiac Enzymes 08/15/17 08/15/17 Range/Units 00:42 06:49 Troponin I 0.04 H* 0.03 (0-0.03) ng/mL - Impressions Impressions Pulmonary Perfusion Imaging 08/15/17 01:16 IMPRESSION: Low Probability for Pulmonary Embolus. D/ / Laith Gurrola MD / Laith Gurrola MD Interpreting Provider: Laith Gurrola MD Consult Discharge Plan - Plan Referrals: Yossi Andres MD [Primary Care Provider] -
[2017-08-15] MEDS: DIALYVITE PO SCH (14:33)
[2017-08-15] MEDS: IRON PO SCH (14:33)
[2017-08-15] MEDS ORDERED: Perflutren Lipid Microsphere 1.3 ML in 0.9 % Sodium Chloride 8.7 ML IVP ONE (15:01)
[2017-08-15 15:25] LABS: Source of Body Fluid Peritoneal Fluid
[2017-08-15] MEDS ORDERED: 0.9 % Sodium Chloride 250 ML ONE (17:09)
[2017-08-15 17:24] LABS: Bilirubin,Urine Negative (Negative); Blood,Urine Moderate (Negative); Clarity,Urine Cloudy (Clear); Color,Urine Yellow (Yellow); Glucose,Urine (UA) 100 mg/dL (Normal); Ketones,Urine Negative (Negative); Leukocyte Esterase,Urine Small (Negative); Nitrite,Urine Negative (Negative); PH,Urine 7.5 pH Units (5.0-8.0); Protein,Urine >=300 mg/dL (Neg-Trace); Specific Gravity,Urine 1.025 (1.010-1.025); Urobilinogen,Urine Normal (Normal)
[2017-08-15 17:25] LABS: Bacteria,Urine None Seen per hpf (None-Few); Hyaline Casts,Urine Few per lpf (None-Few); Squamous Epithelial Cell,Urine Many per lpf (None-Few); WBC,Urine 15-30 per hpf (0-3)
[2017-08-15] MEDS ORDERED: Perit. Dialysis with Dex 2.5 % 12,000 ML PERITONEAL ONE (17:27)
[2017-08-15] MEDS ORDERED: Insulin LISPRO 300 UNITS/3 ML VIAL SQ SCH (21:00)
[2017-08-15 21:03] LABS: Appearance of Body Fluid Clear (Clear)
[2017-08-15 21:04] LABS: Volume of Body Fluid 30 mL
[2017-08-16 07:17] LABS: Basophils % 0.4 %; Eosinophils # 0.1 K/mcL (0.0-0.6); Eosinophils % 1.7 %; Hematocrit 25.5 % (37.5-50.1); Hemoglobin 7.9 g/dL (12.9-16.9); Immature Granulocytes % 3.7 % (0-4); Lymphocytes % 18.9 %; Mean Corpuscular Hemoglobin 24.4 pg (28.0-33.3); Mean Corpuscular Volume 78.7 fL (83.0-100.0); Mean Platelet Volume 10.2 fL (9.4-12.4); Monocytes # 0.5 K/mcL (0.0-1.3); Monocytes % 9.3 %; Neutrophils # 3.6 K/mcL (1.6-8.9); Platelet Count 150 K/mcL (140-400); Red Blood Count 3.24 M/mcL (4.19-5.50); Red Cell Distribution Width 16.1 % (11.5-14.5)
[2017-08-16 07:29] LABS: Calcium 8.2 mg/dL (8.6-10.8); Potassium 4.4 mEq/L (3.5-4.5)
[2017-08-16 07:32] VITALS: BP 178/73
[2017-08-16] MEDS ORDERED: Calcium Acetate 667 MG CAPSULE PO SCH (08:15)
--- NOTE | 2017-08-16 08:30 | Discharge Summary ---
Date of Encounter: 08/16/17 Time of Encounter: 08:27 - Discharge Diagnosis (1) Anemia in chronic kidney disease Priority: Primary Status: Chronic Comments: Acute on chronic anemia/symptomatic anemia, taken off EPO about 1 month ago Qualifiers: Chronic kidney disease stage: on chronic dialysis Qualified Code(s): N18.6 - End stage renal disease; D63.1 - Anemia in chronic kidney disease; D63.1 - Anemia in chronic kidney disease; Z99.2 - Dependence on renal dialysis; Z99.2 - Dependence on renal dialysis; Z99.2 - Dependence on renal dialysis; Z99.2 - Dependence on renal dialysis (2) ARPAN on CPAP Priority: Secondary Status: Chronic (3) Morbid obesity Priority: Secondary Status: Acute (4) ESRD on peritoneal dialysis Priority: Secondary Status: Chronic Comments: Also has hemodialyses on Wednesdays (5) Hypertension Priority: Secondary Status: Acute Qualifiers: Hypertension type: essential hypertension Qualified Code(s): I10 - Essential (primary) hypertension (6) Hyperlipidemia Priority: Secondary Status: Acute Qualifiers: Qualified Code(s): E78.5 - Hyperlipidemia, unspecified - Discharge Medications Prescriptions: Omeprazole [PriLOSEC] 40 mg PO DAILY #30 cap Home Medications: Allopurinol [Zyloprim] 100 mg PO QPM 05/02/15 [History] Amlodipine [Norvasc] 10 mg PO QAM 05/02/15 [History] Calcium Acetate [Phos-LO] 2,001 mg PO TIDWM 05/02/15 [History] Cholecalciferol (Vitamin D3) [Vitamin D] 1,000 unit PO DAILY 05/02/15 [History] Labetalol [Trandate] 200 mg PO BID 05/02/15 [History] Pravastatin Sodium 10 mg PO QPM 05/02/15 [History] Furosemide [Lasix] 80 mg PO BID 04/09/17 [History] Losartan Potassium [Cozaar] 50 mg PO DAILY 04/09/17 [History] Calcium Carbonate/Vitamin D3 [Oyster Shell 250 mg + Vit D Tb] 1 mg PO DAILY [History] Epoetin Eagle [Epogen] 2,000 unit IJ QWEEK 04/28/17 [History] Iron Fum/FA/Vit Bcomp,C [Dialyvite 800 with Iron Tab] 1 each PO DAILY 04/28/17 [ History] Gabapentin [Neurontin] 800 mg PO TID PRN 08/14/17 [History] Levothyroxine Sodium [Synthroid] 274 mcg PO DAILY 08/15/17 [History] Omeprazole [PriLOSEC] 40 mg PO DAILY #30 cap 08/16/17 [Rx] Allergies/Adverse Reactions: 3 Allergy/AdvReac Type Severity Reaction Status Date / Time No Known Allergies Allergy Verified 08/14/17 16:14 Procedures/tests Complete & Pending: Procedures Performed prior 72 hours Category Date Time Status NM pul vent and perfuse [NM] Routine Exams 08/15/17 01:16 Completed EV echocardiogram Routine Y 08/15/17 01:16 Completed Venous Doppler [EV venous imaging LE BI] Routine Y 08/15/17 02:22 Completed Date of admission: 08/14/17 20:46 Primary care physician: Yossi Andres MD Consults: 08/14/17 22:17 Consult to Nephrology [CONS] Routine Consulting Provider: Kidney Sheeba/GABRIELA/JESSA/NATALIE Reason for Consult: Patient on peritoneal dialysis. HD on wednesdays Call Completed: Yes 08/14/17 22:18 Consult to Occupational Therapy [CONS] Routine Comment: Evaluate, develop and implement POC Reason for Consult: weakness Consult to Physical Therapy [CONS] Routine Comment: Evaluate, develop and implement POC Reason for Consult: weakness - Patient Status Disposition: Home, Self-Care Condition: Fair Overall status at discharge: patient is back to baseline - Discharge Instructions Follow Up With: Yossi Andres MD [Primary Care Provider] - Additional Instructions: Follow-up with primary care physician within 1 week. Follow-up with Dr. Melendez within the next week. Start omeprazole. Follow up with nephrology and continue dialysis - Diet and Activity Activity: increase activity as tolerated Diet: diabetic diet Hospital course: Mr. Kothari is a 71 year old male with a past medical history of CKD on peritoneal dialysis also having hemodialysis on Wednesdays, HTN, HLD, diabetes not insulin-dependent, left nephrectomy due to cancer who presented to [facility] ED complaining of shortness of breathe that began last Thursday (6 days ago). It worsened by exertion andgot better with rest. He was at his nephrology appointment with Dr. Schroeder whom insisted he go to ED because his Hgb had decreased ( less than 7). He admittedd some weakness, dizziness, and dark stools at times, dysuria( chronic). He reports that he does have external hemorrhoids and takes dialyvite. He denied hematechezia, syncope, chest pain, wheezing, cough, abdominal pain, nausea, vomiting, fever, chills, orthopnea. He reported that his last colonoscopy 10/16/[address] Melendez had 5 non bleeding polyps that were resected and internal hemorrhoids. He stated he had another polyp that he had to go to [place] to have removed due to the large size. He has hemodialysis on Wednesdays and has a peritoneal dialysis catheter in place which he uses every night. Hgb was 7.7. Was evaluated by nephrology and will continue Epo as an outpatient, was given Aranesp. Received one transfusion of blood. Hemoglobin today is 7.9. He has not had any single bowel movement since admission and is not actively bleeding. The patient was given the option to stay another day to see Dr. Melendez in the morning but prefers to be discharged and follow up with him as an outpatient. Risks were explained - Time Spent with Patient Total time spent providing and/or coordinating discharge services: Greater than 30 minutes (40 min) - Constitutional Vitals: Temp Pulse Resp BP Pulse Ox 97.6 F 74 18 178/73 97 08/16/17 07:27 08/16/17 07:27 08/16/17 07:27 08/16/17 07:27 08/16/17 07:27 General appearance: Present: A&O X 3, morbidly obese, pleasant, no acute distress Exam: Head Head exam: Present: atraumatic, normocephalic - Eye Eye exam: Present: PERRL, conjuntiva pink, sclera anicteric Pupils: Present: PERRL - Neck Neck exam general surgery: Present: supple, trachea midline. Absent: lymphadenopathy - Respiratory Respiratory exam: Present: decreased breath sounds, CTAB. Absent: accessory muscle use, rales, rhonchi, wheezes - Cardiovascular Cardiovascular exam: Present: RRR, +S1, +S2. Absent: diastolic murmur, gallop, rubs, systolic murmur - GI/Abdominal GI/Abdominal exam: Present: normal bowel sounds, soft, no peritoneal signs. Absent: distended, tenderness Additional comments: Peritoneal catheter in place - Extremities Exam Extremities exam: Present: warm, radial pulses palpable and symmetrical. Absent : calf tenderness, cyanotic, pedal edema Additional comments: Left upper extremity AV fistula - Neurological Exam Neurological exam: Present: CN II-XII intact, oriented X3, no focal deficits. Absent: pronater drift, facial droop, speech deficit - Skin Skin exam: Present: dry, intact
[2017-08-16] MEDS: Insulin LISPRO 300 UNITS/3 ML VIAL SQ SCH (08:32)
[2017-08-16] MEDS: Furosemide 40 MG TABLET PO SCH (08:37)
[2017-08-16] MEDS: amLODIPine 5 MG TABLET PO SCH (08:38)
[2017-08-16] MEDS: IRON PO SCH (08:40)
[2017-08-16] MEDS: DIALYVITE PO SCH (08:40)
--- NOTE | 2017-08-16 12:17 | Physician Discharge Referral ---
Home Health/Hosp Referral Info Transfer to: Home Health Provider in Charge Post Discharge: PCP - Diagnosis (1) Anemia in chronic kidney disease Status: Chronic (2) ARPAN on CPAP Status: Chronic (3) Morbid obesity Status: Acute (4) ESRD on peritoneal dialysis Status: Chronic (5) Hypertension Status: Acute (6) Hyperlipidemia Status: Acute - Respiratory Orders Smoking Cessation: Smoking cessation has been advised. For more information, call the [employer] Tobacco Quit Line at 2-390-PFJW-NOW. - Diet/Nutrition Diet/Nutrition Orders: No Added Salt (ARLEY) - Services Needed Home Care Orders: Follow-up with primary care physician within 1 week. Follow-up with Dr. Melendez within the next week. Start omeprazole. Follow up with nephrology and continue dialysis - Transfer Medications Prescriptions: Omeprazole [PriLOSEC] 40 mg PO DAILY #30 cap Home Medications: Allopurinol [Zyloprim] 100 mg PO QPM 05/02/15 [History] Amlodipine [Norvasc] 10 mg PO QAM 05/02/15 [History] Calcium Acetate [Phos-LO] 2,001 mg PO TIDWM 05/02/15 [History] Cholecalciferol (Vitamin D3) [Vitamin D] 1,000 unit PO DAILY 05/02/15 [History] Labetalol [Trandate] 200 mg PO BID 05/02/15 [History] Pravastatin Sodium 10 mg PO QPM 05/02/15 [History] Furosemide [Lasix] 80 mg PO BID 04/09/17 [History] Losartan Potassium [Cozaar] 50 mg PO DAILY 04/09/17 [History] Calcium Carbonate/Vitamin D3 [Oyster Shell 250 mg + Vit D Tb] 1 mg PO DAILY [History] Epoetin Eagle [Epogen] 2,000 unit IJ QWEEK 04/28/17 [History] Iron Fum/FA/Vit Bcomp,C [Dialyvite 800 with Iron Tab] 1 each PO DAILY 04/28/17 [ History] Gabapentin [Neurontin] 800 mg PO TID PRN 08/14/17 [History] Levothyroxine Sodium [Synthroid] 274 mcg PO DAILY 08/15/17 [History] Omeprazole [PriLOSEC] 40 mg PO DAILY #30 cap 08/16/17 [Rx] Allergies/Adverse Reactions: 3 Allergy/AdvReac Type Severity Reaction Status Date / Time No Known Allergies Allergy Verified 08/14/17 16:14 Certification: Further, I certify that my clinical findings support that this patient is homebound (i.e. absences from home require considerable and taxing effort and are for medical reasons or sikh services or infrequently or short duration when for other reasons) because: Homebound Reason: Patient requires assistance of a person or device to safely leave home Attestation: My signature below is to certify that this patient is under my care and that I, or nurse practitioner, or a physician's assistant office manager working with me, has a face-to -face encounter with this patient.
--- NOTE | 2017-08-17 16:58 | Electrocardiograph Report ---
[place] [id number] Test Date: 2017-08-14 Pat Name: Pola Kothari Department: 104 Room: 2A Gender: M Surgical Specialist: AM : 1945 Requested By: Magdi Jennings Order Number: [id number] Reading MD: Lizandro Barrera Measurements Intervals [place] Rate: 71 P: 1 TX: 168 QRS: -1 QRSD: 122 T: 31 QT: 414 QTc: 436 Interpretive Statements SINUS RHYTHM LEFT VENTRICULAR HYPERTROPHY AND ST-T CHANGE Electronically Signed On 08-17-2017 16:56:37 EST by Lizandro Barrera
== END 2017-08-16 11:16 | disposition home health service (06) ==
LOC: 2ANU 15:50 → EMEROO 15:50 → 2ANU 21:20
PROVIDERS: ADMIT Internal Medicine Hematology & Oncology; ATTEND Internal Medicine

== ENCOUNTER 2019-12-30 10:09 | Observation (INO) ==
[2019-12-30] MEDS ORDERED: 0.9 % Sodium Chloride 500 ML IVC ONE (10:12)
[2019-12-30] MEDS ORDERED: *HR* Adenosine 6 MG/2 ML VIAL IVP ONE ×2 (10:19→10:41)
[2019-12-30 10:40] LABS: Basophils % 0.3 %; Eosinophils # 0.1 K/mcL (0.0-0.6); Eosinophils % 2.1 %; Hematocrit 38.1 % (37.5-50.1); Hemoglobin 11.4 g/dL (12.9-16.9); Immature Granulocytes % 0.5 % (0-4); Lymphocytes # 1.1 K/mcL (0.6-4.6); Lymphocytes % 17.5 %; Mean Corpuscular HGB Conc 29.9 g/dL (31.6-35.5); Mean Corpuscular Hemoglobin 24.6 pg (28.0-33.3); Mean Corpuscular Volume 82.3 fL (83.0-100.0); Mean Platelet Volume 9.8 fL (9.4-12.4); Monocytes # 0.6 K/mcL (0.0-1.3); Monocytes % 10.5 %; Neutrophils # 4.2 K/mcL (1.6-8.9); Platelet Count 155 K/mcL (140-400); Red Blood Count 4.63 M/mcL (4.19-5.50); Red Cell Distribution Width 14.7 % (11.5-14.5); Segmented Neutrophils % 69.1 %; White Blood Count 6.1 K/mcL (4.3-11.1)
[2019-12-30 11:00] LABS: Alanine Aminotransferase 21 Units/L (7-52); Albumin 4.8 g/dL (3.5-5.7); Albumin/Globulin Ratio 1.9 (1.1-2.2); Alkaline Phosphatase 79 Units/L (34-104); Aspartate Amino Transferase 16 Units/L (13-39); BUN/Creatinine Ratio 4 (6-26); Bilirubin,Total 0.7 mg/dL (0.3-1.0); Blood Urea Nitrogen 27 mg/dL (8-23); Carbon Dioxide 28 mEq/L (23-29); Chloride 96 mEq/L (98-107); Globulin 2.5 g/dL (2.4-3.5); Glucose 122 mg/dL (70-105); Osmolality,Calculated 298 (280-300); Sodium 141 mEq/L (136-145); Total Protein 7.3 g/dL (6.4-8.9); Troponin I < 0.03 ng/mL (< 0.04); eGFR For African Americans 9 (> 60); eGFR For Non-African Americans 8 (> 60)
[2019-12-30] MEDS ORDERED: Naloxone 0.4 MG/ML INJ IVP PRN (11:44)
[2019-12-30 12:01] LABS: Magnesium 1.9 mg/dL (1.6-2.6)
[2019-12-30] MEDS ORDERED: *HR* Heparin 5,000 UNIT/ML VIAL IVP ONE (16:56)
[2019-12-30] MEDS ORDERED: *HR* Heparin 5,000 UNIT/ML VIAL IVP PRN (16:56)
[2019-12-30] MEDS ORDERED: Heparin 25,000 UNIT/250 ML D5W 25,000 UNIT/250 ML IV.SOLN IVC SCH (17:00)
[2019-12-30] MEDS: Calcium Acetate 667 MG CAPSULE PO SCH (17:41)
[2019-12-30] MEDS: Furosemide 40 MG TABLET PO SCH (17:42)
[2019-12-30 17:53] LABS: Heparin anti-factor XA UFH < 0.04 IU/mL (0.30-0.70); Prothrombin Time 11.6 Seconds (9.4-12.1)
[2019-12-30] MEDS ORDERED: Pregabalin 50 MG CAPSULE PO SCH (18:00)
[2019-12-30] MEDS ORDERED: allopurinoL 100 MG TABLET PO SCH (18:00)
[2019-12-30] MEDS ORDERED: amLODIPine 5 MG TABLET PO SCH (21:00)
[2019-12-31] MEDS: Heparin 25,000 UNIT/250 ML D5W 25,000 UNIT/250 ML IV.SOLN IVC SCH ×2 (01:02→11:37)
[2019-12-31 05:15] LABS: Basophils % 0.3 %; Eosinophils # 0.2 K/mcL (0.0-0.6); Eosinophils % 2.7 %; Hematocrit 33.8 % (37.5-50.1); Hemoglobin 10.4 g/dL (12.9-16.9); Immature Granulocytes % 0.6 % (0-4); Lymphocytes # 1.6 K/mcL (0.6-4.6); Lymphocytes % 22.5 %; Mean Corpuscular HGB Conc 30.8 g/dL (31.6-35.5); Mean Corpuscular Hemoglobin 25.3 pg (28.0-33.3); Mean Corpuscular Volume 82.2 fL (83.0-100.0); Monocytes # 0.6 K/mcL (0.0-1.3); Monocytes % 7.9 %; Neutrophils # 4.7 K/mcL (1.6-8.9); Platelet Count 147 K/mcL (140-400); Red Blood Count 4.11 M/mcL (4.19-5.50); Red Cell Distribution Width 14.3 % (11.5-14.5); White Blood Count 7.1 K/mcL (4.3-11.1)
[2019-12-31] MEDS: *HR* Heparin 5,000 UNIT/ML VIAL IVP PRN ×2 (05:29→11:39)
[2019-12-31 05:36] LABS: Calcium 8.3 mg/dL (8.6-10.3)
[2019-12-31] MEDS: Calcium Acetate 667 MG CAPSULE PO SCH ×2 (07:22→11:40)
[2019-12-31] MEDS: Furosemide 40 MG TABLET PO SCH (07:22)
[2019-12-31 08:23] LABS: Troponin I 0.12 ng/mL (< 0.04)
[2019-12-31] MEDS ORDERED: Renal Vitamin 1 CAP CAPSULE PO SCH (09:00)
[2019-12-31] MEDS ORDERED: Cholecalciferol (D-3) 1,000 UNIT (25MCG) TABLET PO SCH (09:00)
[2019-12-31] MEDS ORDERED: [UNRECOGNIZED DRUG - OTHER] PO SCH (09:00)
[2019-12-31] MEDS ORDERED: polyethylene glycoL 3350 17 GM POWD.PACK PO SCH (09:00)
[2019-12-31] MEDS ORDERED: CALCIUM CARBONATE PO SCH (09:00)
[2019-12-31] MEDS ORDERED: VITAMIN D3 PO SCH (09:00)
[2019-12-31 11:01] VITALS: BP 140/68
[2019-12-31 11:15] LABS: Bilirubin,Urine Negative (Negative); Blood,Urine Large (Negative); Color,Urine Yellow (Yellow); Glucose,Urine (UA) Normal (Normal); Ketones,Urine Negative (Negative); Leukocyte Esterase,Urine Large (Negative); Nitrite,Urine Negative (Negative); PH,Urine 7.5 pH Units (5.0-8.0); Protein,Urine >=300 mg/dL (Neg-Trace); Specific Gravity,Urine 1.025 (1.010-1.025); Urobilinogen,Urine Normal (Normal)
[2019-12-31 11:23] LABS: Clarity,Urine Cloudy (Clear)
[2019-12-31 11:24] LABS: RBC,Urine 0-3 per hpf (0-3)
[2019-12-31 11:25] LABS: Bacteria,Urine Moderate per hpf (None-Few); Squamous Epithelial Cell,Urine Few per lpf (None-Few); WBC,Urine 30-50 per hpf (0-3)
[2019-12-31] MEDS ORDERED: Aspirin Enteric Coated 81 MG Tablet PO SCH (13:45)
== END 2019-12-31 14:19 | disposition home or self-care (01) ==
LOC: 2ANU 10:09 → EMEROOARM 10:09 → SUATTDRO 11:50 → 2ANU 12:27
PROVIDERS: ADMIT Internal Medicine; ATTEND Internal Medicine

== ENCOUNTER 2020-10-05 09:53 | Observation (INO) ==
[2020-10-05] MEDS ORDERED: 0.9 % Sodium Chloride 250 ML IVC ONE ×2 (10:04→11:13)
[2020-10-05] MEDS ORDERED: *HR* Metoprolol 5 MG/5 ML VIAL IVP ONE ×2 (10:04→10:48)
[2020-10-05 10:28] LABS: INR 1.1
[2020-10-05 10:30] LABS: Activated Partial Thrombo Time 39.6 Seconds (26.0-36.0)
[2020-10-05 10:32] LABS: Basophils % 0.4 %; Eosinophils # 0.2 K/mcL (0.0-0.6); Eosinophils % 3.4 %; Hematocrit 31.9 % (37.5-50.1); Hemoglobin 9.4 g/dL (12.9-16.9); Immature Granulocytes % 0.4 % (0-4); Lymphocytes # 1.8 K/mcL (0.6-4.6); Lymphocytes % 32.7 %; Mean Corpuscular HGB Conc 29.5 g/dL (31.6-35.5); Mean Corpuscular Hemoglobin 23.7 pg (28.0-33.3); Mean Corpuscular Volume 80.6 fL (83.0-100.0); Mean Platelet Volume 10.1 fL (9.4-12.4); Monocytes # 0.5 K/mcL (0.0-1.3); Platelet Count 135 K/mcL (140-400); Red Blood Count 3.96 M/mcL (4.19-5.50); Red Cell Distribution Width 14.8 % (11.5-14.5); Segmented Neutrophils % 54.1 %; White Blood Count 5.6 K/mcL (4.3-11.1)
[2020-10-05 10:43] LABS: BUN/Creatinine Ratio 5 (6-26); Blood Urea Nitrogen 25 mg/dL (8-23); Calcium 9.5 mg/dL (8.6-10.3); Carbon Dioxide 28 mEq/L (23-29); Chloride 99 mEq/L (98-107); Glucose 94 mg/dL (70-105); Magnesium 2.1 mg/dL (1.6-2.6); Osmolality,Calculated 292 (280-300); Potassium 3.6 mEq/L (3.5-5.1); Sodium 139 mEq/L (136-145); Troponin I < 0.03 ng/mL (< 0.04); eGFR For African Americans 13 (> 60); eGFR For Non-African Americans 11 (> 60)
[2020-10-05 10:56] LABS: Thyroid Stimulating Hormone 0.838 mcIU/mL (0.340-5.600)
[2020-10-05] MEDS ORDERED: Aspirin 81 MG TAB.CHEW PO ONE (12:33)
[2020-10-05] MEDS ORDERED: Naloxone 0.4 MG/ML INJ IVP PRN (12:46)
[2020-10-05] MEDS ORDERED: Perflutren Lipid Microsphere 1.3 ML in 0.9 % Sodium Chloride 8.7 ML IVP PRN (13:17)
[2020-10-05] MEDS: *HR* Heparin 5,000 UNIT/ML VIAL SQ SCH (17:55)
[2020-10-06 04:04] LABS: Estimated Average Glucose 74 mg/dl; Hemoglobin A1C 4.2 %
[2020-10-06 04:12] LABS: Chol/HDL Ratio 4.2 (0-4.9)
[2020-10-06 04:14] LABS: Calcium 8.9 mg/dL (8.6-10.3); Magnesium 2.2 mg/dL (1.6-2.6); Phosphorous 3.2 mg/dL (2.7-4.5); Potassium 4.1 mEq/L (3.5-5.1)
[2020-10-06 04:19] LABS: % Iron Saturation 14 % (20-55); Iron 42 mcg/dL (65-175); Transferrin 208 mg/dL (203-362)
[2020-10-06 04:31] LABS: Ferritin 856 ng/mL (20-250)
[2020-10-06 05:31] LABS: Basophils % 0.5 %; Eosinophils # 0.2 K/mcL (0.0-0.6); Eosinophils % 3.4 %; Hematocrit 37.7 % (37.5-50.1); Hemoglobin 11.3 g/dL (12.9-16.9); Immature Granulocytes % 0.2 % (0-4); Lymphocytes # 1.7 K/mcL (0.6-4.6); Lymphocytes % 30.7 %; Mean Platelet Volume 11.6 fL (9.4-12.4); Monocytes # 0.5 K/mcL (0.0-1.3); Monocytes % 8.7 %; Neutrophils # 3.2 K/mcL (1.6-8.9); Platelet Count 184 K/mcL (140-400); Red Blood Count 4.71 M/mcL (4.19-5.50); Red Cell Distribution Width 14.7 % (11.5-14.5); Segmented Neutrophils % 56.5 %; White Blood Count 5.6 K/mcL (4.3-11.1)
[2020-10-06] MEDS: *HR* Heparin 5,000 UNIT/ML VIAL SQ SCH (05:31)
[2020-10-06] MEDS ORDERED: polyethylene glycoL 3350 17 GM POWD.PACK PO PRN (07:32)
[2020-10-06] MEDS ORDERED: Calcium Acetate 667 MG CAPSULE PO SCH (07:45)
[2020-10-06] MEDS: Calcium Acetate 667 MG CAPSULE PO SCH ×2 (08:34→12:40)
[2020-10-06] MEDS ORDERED: Cholecalciferol (D-3) 1,000 UNIT (25MCG) TABLET PO SCH (09:00)
[2020-10-06] MEDS ORDERED: Ascorbic Acid 500 MG TABLET PO SCH (09:00)
[2020-10-06] MEDS ORDERED: Multivit/Ca/Min/Fe/FA 1 TAB TABLET PO SCH (09:00)
[2020-10-06] MEDS ORDERED: amLODIPine 5 MG TABLET PO SCH (09:00)
[2020-10-06 11:27] VITALS: BP 169/73
[2020-10-06] MEDS ORDERED: Pregabalin 50 MG CAPSULE PO SCH (18:00)
[2020-10-06] MEDS ORDERED: allopurinoL 100 MG TABLET PO SCH (18:00)
== END 2020-10-06 12:53 | disposition home or self-care (01) ==
LOC: EMEROOARM 09:53 → 2ANU 09:53 → SUATTDRO 12:40 → 2ANU 14:08
PROVIDERS: ADMIT Internal Medicine; ATTEND Internal Medicine

== ENCOUNTER 2021-02-06 10:12 | Inpatient (IN) ==
[2021-02-06] MEDS ORDERED: Prochlorperazine 10 MG/2 ML VIAL IVP STA (10:36)
[2021-02-06] MEDS ORDERED: 0.9 % Sodium Chloride 250 ML IVC ONE ×2 (10:36→11:25)
[2021-02-06] MEDS ORDERED: Calcium Gluconate 1gm/50mL 1 GM/50 ML BAG IVPB ONE (10:43)
[2021-02-06] MEDS ORDERED: DilTIAZem 125 MG in D5% in Water 100 ML IVC SCH (10:45)
[2021-02-06 11:17] LABS: Basophils % 0.5 %; Eosinophils # 0.1 K/mcL (0.0-0.6); Eosinophils % 2.2 %; Hematocrit 48.8 % (37.5-50.1); Hemoglobin 14.5 g/dL (12.9-16.9); Immature Granulocytes % 0.5 % (0-4); Lymphocytes # 2.2 K/mcL (0.6-4.6); Lymphocytes % 37.8 %; Mean Corpuscular HGB Conc 29.7 g/dL (31.6-35.5); Mean Corpuscular Hemoglobin 24.2 pg (28.0-33.3); Mean Corpuscular Volume 81.5 fL (83.0-100.0); Mean Platelet Volume 10.1 fL (9.4-12.4); Monocytes # 0.6 K/mcL (0.0-1.3); Monocytes % 10.7 %; Neutrophils # 2.9 K/mcL (1.6-8.9); Nucleated Red Blood Cells 0.3 /100 WBC (0); Platelet Count 169 K/mcL (140-400); Red Blood Count 5.99 M/mcL (4.19-5.50); Red Cell Distribution Width 16.5 % (11.5-14.5); Segmented Neutrophils % 48.3 %; White Blood Count 5.9 K/mcL (4.3-11.1)
[2021-02-06 11:33] LABS: BUN/Creatinine Ratio 4 (6-26); Blood Urea Nitrogen 29 mg/dL (8-23); Calcium 8.7 mg/dL (8.6-10.3); Carbon Dioxide 31 mEq/L (23-29); Chloride 96 mEq/L (98-107); Glucose 118 mg/dL (70-105); Osmolality,Calculated 295 (280-300); Potassium 4.2 mEq/L (3.5-5.1); Sodium 139 mEq/L (136-145); Troponin I < 0.03 ng/mL (< 0.04); eGFR For African Americans 9 (> 60); eGFR For Non-African Americans 7 (> 60)
[2021-02-06] MEDS ORDERED: *HR* Adenosine 6 MG/2 ML VIAL IVP ONE ×3 (11:39→11:57)
[2021-02-06 11:40] LABS: Magnesium 2.3 mg/dL (1.6-2.6)
[2021-02-06] MEDS ORDERED: *HR* Midazolam HCl 2 MG/2 ML VIAL IVP ONE (12:14)
[2021-02-06] MEDS ORDERED: Ondansetron 4 MG/2 ML VIAL IVP PRN (15:09)
[2021-02-06] MEDS ORDERED: Melatonin 3 MG TABLET PO PRN (15:09)
[2021-02-06] MEDS ORDERED: Acetaminophen 325 MG TABLET PO PRN (15:09)
[2021-02-06] MEDS ORDERED: Calcium Acetate 667 MG CAPSULE PO SCH (15:15)
[2021-02-06] MEDS: allopurinoL 100 MG TABLET PO SCH (16:59)
[2021-02-06] MEDS: *HR* Heparin 5,000 UNIT/ML VIAL SQ SCH ×2 (17:04→20:19)
[2021-02-06 17:49] LABS: Hepatitis B Surface Antibody 108.46 mIU/mL
[2021-02-06] MEDS: Calcium Acetate 667 MG CAPSULE PO SCH ×2 (17:50→17:51)
[2021-02-06 17:58] LABS: Hepatitis B Surface Antigen Nonreactive (Nonreactive)
[2021-02-06] MEDS: Metoprolol XL (24 HR) Succ 25 MG TAB.ER.24H PO SCH (20:00)
[2021-02-06] MEDS ORDERED: Metoprolol XL (24 HR) Succ 25 MG TAB.ER.24H PO SCH ×2 (21:00)
[2021-02-07] MEDS ORDERED: 0.9 % Sodium Chloride 250 ML IVC PRN ×2 (00:01→16:52)
[2021-02-07] MEDS ORDERED: 0.9 % Sodium Chloride 1,000 ML PRIME SCH (00:01)
[2021-02-07 05:38] LABS: Hematocrit 47.5 % (37.5-50.1); Mean Corpuscular HGB Conc 29.5 g/dL (31.6-35.5); Mean Corpuscular Hemoglobin 24.1 pg (28.0-33.3); Mean Corpuscular Volume 81.8 fL (83.0-100.0); Platelet Count 164 K/mcL (140-400); Red Blood Count 5.81 M/mcL (4.19-5.50); Red Cell Distribution Width 15.5 % (11.5-14.5); White Blood Count 6.2 K/mcL (4.3-11.1)
[2021-02-07] MEDS: *HR* Heparin 5,000 UNIT/ML VIAL SQ SCH ×3 (05:59→21:47)
[2021-02-07 06:37] LABS: Calcium 8.6 mg/dL (8.6-10.3); Magnesium 2.6 mg/dL (1.6-2.6); Phosphorous 6.1 mg/dL (2.7-4.5); Potassium 5.6 mEq/L (3.5-5.1); Troponin I 0.06 ng/mL (< 0.04)
[2021-02-07] MEDS ORDERED: Perflutren Lipid Microsphere 1.3 ML in 0.9 % Sodium Chloride 8.7 ML IVP PRN (08:00)
[2021-02-07] MEDS: Metoprolol XL (24 HR) Succ 25 MG TAB.ER.24H PO SCH ×2 (08:23→21:48)
[2021-02-07] MEDS: Calcium Acetate 667 MG CAPSULE PO SCH ×3 (08:28→16:51)
[2021-02-07] MEDS ORDERED: Calcium Acetate 667 MG CAPSULE PO PRN (09:15)
[2021-02-07] MEDS: Aspirin Enteric Coated 81 MG Tablet PO SCH (12:40)
[2021-02-07] MEDS: allopurinoL 100 MG TABLET PO SCH (16:51)
[2021-02-07] MEDS ORDERED: Pregabalin 50 MG CAPSULE PO SCH (22:45)
[2021-02-08] MEDS ORDERED: Albumin 25% 25gram/100mL 25 GM/100 ML IV.SOLN IVPB PRN (00:01)
[2021-02-08 02:36] LABS: Hematocrit 47.9 % (37.5-50.1); Hemoglobin 15.1 g/dL (12.9-16.9)
[2021-02-08 02:54] LABS: Calcium 8.6 mg/dL (8.6-10.3); Magnesium 2.6 mg/dL (1.6-2.6); Phosphorous 6.7 mg/dL (2.7-4.5)
[2021-02-08] MEDS: *HR* Heparin 5,000 UNIT/ML VIAL SQ SCH ×2 (06:14→13:28)
[2021-02-08] MEDS: Calcium Acetate 667 MG CAPSULE PO SCH ×3 (07:47→13:28)
[2021-02-08] MEDS: Aspirin Enteric Coated 81 MG Tablet PO SCH (07:59)
[2021-02-08] MEDS: Metoprolol XL (24 HR) Succ 25 MG TAB.ER.24H PO SCH (13:29)
[2021-02-08 14:27] VITALS: BP 96/54
== END 2021-02-08 14:01 | disposition home or self-care (01) | DRG 308 ==
LOC: 2NNU 10:12 → EMEROOARM 10:12 → SUATTDRO 14:03 → 2NNU 15:06 → 2ANU 02-07 15:33
PROVIDERS: ADMIT Internal Medicine; ATTEND Internal Medicine

== ENCOUNTER 2021-10-22 09:35 | Inpatient (IN) ==
[2021-10-22] MEDS ORDERED: Aspirin 81 MG TAB.CHEW PO ONE (09:39)
[2021-10-22] MEDS ORDERED: *HR* Adenosine 6 MG/2 ML SYRINGE IVP ONE ×2 (09:48)
[2021-10-22] MEDS ORDERED: 0.9 % Sodium Chloride 250 ML ONE (09:49)
[2021-10-22] MEDS ORDERED: 0.9 % Sodium Chloride 250 ML IVC ONE (10:10)
[2021-10-22] MEDS ORDERED: *HR* Adenosine 6 MG/2 ML VIAL IVP ONE ×2 (10:10)
[2021-10-22 10:19] LABS: Basophils % 0.3 %; Eosinophils # 0.1 K/mcL (0.0-0.6); Eosinophils % 1.5 %; Hematocrit 48.7 % (37.5-50.1); Hemoglobin 14.9 g/dL (12.9-16.9); Immature Granulocytes % 0.4 % (0-4); Lymphocytes # 1.9 K/mcL (0.6-4.6); Mean Corpuscular HGB Conc 30.6 g/dL (31.6-35.5); Mean Corpuscular Hemoglobin 25.4 pg (28.0-33.3); Mean Corpuscular Volume 83.1 fL (83.0-100.0); Mean Platelet Volume 9.3 fL (9.4-12.4); Monocytes # 0.6 K/mcL (0.0-1.3); Monocytes % 8.7 %; Platelet Count 161 K/mcL (140-400); Red Blood Count 5.86 M/mcL (4.19-5.50); Red Cell Distribution Width 15.9 % (11.5-14.5); Segmented Neutrophils % 60.1 %; White Blood Count 6.7 K/mcL (4.3-11.1)
[2021-10-22 10:26] LABS: INR 1.1; Prothrombin Time 12.1 Seconds (9.4-12.1)
[2021-10-22 10:39] LABS: Calcium 9.6 mg/dL (8.6-10.3); Potassium 4.9 mEq/L (3.5-5.1)
[2021-10-22 10:46] LABS: Troponin I 0.15 ng/mL (< 0.04)
[2021-10-22] MEDS ORDERED: Naloxone 0.4 MG/ML INJ IVP PRN (10:51)
[2021-10-22] MEDS ORDERED: *HR* Heparin 5,000 UNIT/ML VIAL IVP PRN ×2 (11:02)
[2021-10-22] MEDS ORDERED: *HR* Heparin 5,000 UNIT/ML VIAL IVP ONE (11:02)
[2021-10-22] MEDS ORDERED: Perflutren Lipid Microsphere 1.3 ML in 0.9 % Sodium Chloride 8.7 ML IVP PRN (11:56)
[2021-10-22 13:30] LABS: Estimated Average Glucose 111 mg/dl; Hemoglobin A1C 5.5 %
[2021-10-22 13:46] LABS: Chol/HDL Ratio 2.9 (0-4.9); Magnesium 2.6 mg/dL (1.6-2.6); Phosphorous 4.4 mg/dL (2.7-4.5)
[2021-10-22] MEDS: Heparin 25,000UNIT/250ML 1/2NS 25,000 UNIT/250 ML IV.SOLN IVC SCH (14:00)
[2021-10-23 04:39] LABS: Basophils % 0.5 %; Eosinophils # 0.2 K/mcL (0.0-0.6); Immature Granulocytes % 0.7 % (0-4); Lymphocytes % 34.6 %; Mean Corpuscular HGB Conc 30.2 g/dL (31.6-35.5); Mean Corpuscular Volume 82.5 fL (83.0-100.0); Mean Platelet Volume 9.6 fL (9.4-12.4); Monocytes # 0.6 K/mcL (0.0-1.3); Monocytes % 9.7 %; Neutrophils # 2.9 K/mcL (1.6-8.9); Platelet Count 154 K/mcL (140-400); Red Blood Count 5.21 M/mcL (4.19-5.50); Red Cell Distribution Width 15.3 % (11.5-14.5); Segmented Neutrophils % 51.5 %; White Blood Count 5.7 K/mcL (4.3-11.1)
[2021-10-23 04:46] LABS: Calcium 8.5 mg/dL (8.6-10.3); Magnesium 2.8 mg/dL (1.6-2.6); Phosphorous 5.4 mg/dL (2.7-4.5); Potassium 5.2 mEq/L (3.5-5.1)
[2021-10-23] MEDS ORDERED: 0.9 % Sodium Chloride 250 ML IVC PRN (07:05)
[2021-10-23] MEDS ORDERED: 0.9 % Sodium Chloride 1,000 ML PRIME SCH (07:15)
[2021-10-23] MEDS: Aspirin 81 MG TAB.CHEW PO SCH (07:44)
[2021-10-23] MEDS: Heparin 25,000UNIT/250ML 1/2NS 25,000 UNIT/250 ML IV.SOLN IVC SCH (08:36)
[2021-10-23] MEDS ORDERED: *HR* FentaNYL (PF) 100 MCG/2 ML VIAL ONE (12:45)
[2021-10-23] MEDS ORDERED: *HR* Midazolam HCl 2 MG/2 ML VIAL ONE (12:45)
[2021-10-23] MEDS ORDERED: 0.9 % Sodium Chloride 2,000 ML ONE (12:45)
[2021-10-23] MEDS ORDERED: Heparin 1,000 UNITS/500 mL 500 ML ONE (12:46)
[2021-10-23] MEDS ORDERED: *HR* Heparin 10,000 UNIT/10 ML VIAL ONE (12:46)
[2021-10-23] MEDS ORDERED: ISOVUE-370 200 ML INFUS..BTL ONE (12:46)
[2021-10-23] MEDS ORDERED: Nitroglycerin 1,000 MCG/5 ML VIAL IV ONE (12:46)
[2021-10-23] MEDS ORDERED: Albumin 25% 25gram/100mL 25 GM/100 ML IV.SOLN IVPB ONE (23:34)
[2021-10-24 00:16] LABS: Hematocrit 45.6 % (37.5-50.1); Hemoglobin 14.3 g/dL (12.9-16.9); Mean Corpuscular HGB Conc 31.4 g/dL (31.6-35.5); Mean Corpuscular Hemoglobin 25.5 pg (28.0-33.3); Mean Corpuscular Volume 81.3 fL (83.0-100.0); Mean Platelet Volume 9.7 fL (9.4-12.4); Platelet Count 161 K/mcL (140-400); Red Blood Count 5.61 M/mcL (4.19-5.50); Red Cell Distribution Width 15.2 % (11.5-14.5); White Blood Count 5.5 K/mcL (4.3-11.1)
[2021-10-24 00:32] LABS: Albumin/Globulin Ratio 1.6 (1.1-2.2); Bilirubin,Total 0.4 mg/dL (0.3-1.0); Calcium 8.7 mg/dL (8.6-10.3); Globulin 2.5 g/dL (2.4-3.5); Magnesium 2.4 mg/dL (1.6-2.6); Phosphorous 3.6 mg/dL (2.7-4.5); Potassium 4.3 mEq/L (3.5-5.1); Total Protein 6.5 g/dL (6.4-8.9)
[2021-10-24] MEDS ORDERED: 0.9 % Sodium Chloride 250 ML IVC PRN (07:24)
[2021-10-24 08:02] LABS: Basophils % 0.5 %; Eosinophils # 0.1 K/mcL (0.0-0.6); Eosinophils % 1.9 %; Hematocrit 45.7 % (37.5-50.1); Hemoglobin 13.8 g/dL (12.9-16.9); Immature Granulocytes % 0.7 % (0-4); Lymphocytes # 1.6 K/mcL (0.6-4.6); Lymphocytes % 28.5 %; Mean Corpuscular HGB Conc 30.2 g/dL (31.6-35.5); Mean Corpuscular Hemoglobin 24.5 pg (28.0-33.3); Mean Corpuscular Volume 81.2 fL (83.0-100.0); Mean Platelet Volume 9.6 fL (9.4-12.4); Monocytes # 0.6 K/mcL (0.0-1.3); Monocytes % 10.4 %; Neutrophils # 3.3 K/mcL (1.6-8.9); Nucleated Red Blood Cells 0.3 /100 WBC (0); Platelet Count 160 K/mcL (140-400); Red Blood Count 5.63 M/mcL (4.19-5.50); Red Cell Distribution Width 15.1 % (11.5-14.5); White Blood Count 5.8 K/mcL (4.3-11.1)
[2021-10-24 08:16] LABS: Calcium 9.2 mg/dL (8.6-10.3); Magnesium 2.6 mg/dL (1.6-2.6); Phosphorous 4.6 mg/dL (2.7-4.5); Potassium 4.8 mEq/L (3.5-5.1)
[2021-10-24 08:25] VITALS: BP 119/67; PULSE 90; TEMP 97.8; O2SAT 98
[2021-10-24] MEDS: Aspirin 81 MG TAB.CHEW PO SCH (08:48)
== END 2021-10-24 11:52 | disposition home health service (06) | DRG 280 ==
LOC: 2NENU 09:35 → EMEROOARM 09:35 → 2NENU 12:02
PROVIDERS: ADMIT Internal Medicine; ATTEND Internal Medicine

== ENCOUNTER 2022-02-04 11:32 | Inpatient (IN) ==
[2022-02-04 12:57] LABS: Basophils % 0.4 %; Eosinophils # 0.2 K/mcL (0.0-0.6); Eosinophils % 2.8 %; Hematocrit 41.9 % (37.5-50.1); Hemoglobin 12.6 g/dL (12.9-16.9); Immature Granulocytes % 0.3 % (0-4); Lymphocytes # 1.6 K/mcL (0.6-4.6); Lymphocytes % 23.4 %; Mean Corpuscular HGB Conc 30.1 g/dL (31.6-35.5); Mean Corpuscular Hemoglobin 23.9 pg (28.0-33.3); Mean Corpuscular Volume 79.4 fL (83.0-100.0); Mean Platelet Volume 9.3 fL (9.4-12.4); Monocytes # 0.6 K/mcL (0.0-1.3); Monocytes % 8.9 %; Neutrophils # 4.3 K/mcL (1.6-8.9); Platelet Count 168 K/mcL (140-400); Red Blood Count 5.28 M/mcL (4.19-5.50); Segmented Neutrophils % 64.2 %; White Blood Count 6.7 K/mcL (4.3-11.1)
[2022-02-04 14:21] LABS: Albumin 4.1 g/dL (3.5-5.7); Albumin/Globulin Ratio 1.5 (1.1-2.2); Bilirubin,Total 0.5 mg/dL (0.3-1.0); Calcium 9.6 mg/dL (8.6-10.3); Globulin 2.7 g/dL (2.4-3.5); Potassium 4.5 mEq/L (3.5-5.1); Total Protein 6.8 g/dL (6.4-8.9)
[2022-02-04] MEDS ORDERED: Piperacillin/Tazobactam 3.375 GM in 0.9 % Sodium Chloride Mini Bag 100 ML IVPB ONE (14:29)
[2022-02-04] MEDS ORDERED: Isovue-370 500 ML BOTTLE IVP ONE (14:38)
[2022-02-04] MEDS ORDERED: Vancomycin 1,750 MG/517.5 ML IV.SOLN IVPB ONE (14:45)
[2022-02-04] MEDS ORDERED: Naloxone 0.4 MG/ML INJ IVP PRN (16:58)
[2022-02-04] MEDS ORDERED: Ondansetron ODT 4 MG TAB.RAPDIS SL PRN (16:58)
[2022-02-04] MEDS ORDERED: Melatonin 3 MG TABLET PO PRN (16:58)
[2022-02-04] MEDS ORDERED: cloNIDine HCL 0.1 MG TABLET PO PRN (17:12)
[2022-02-04] MEDS ORDERED: Vancomycin 1,750 MG in 0.9 % Sodium Chloride 250 ML IVPB SCH (18:00)
[2022-02-04] MEDS: Ringers Solution, Lactated 1,000 ML IVC SCH (18:11)
[2022-02-04] MEDS: Gabapentin 300 MG CAPSULE PO SCH (20:22)
[2022-02-05] MEDS: Ringers Solution, Lactated 1,000 ML IVC SCH (03:31)
[2022-02-05] MEDS: Piperacillin/Tazobactam 3.375 GM in 0.9 % Sodium Chloride Mini Bag 100 ML IVPB SCH ×2 (03:32→22:10)
[2022-02-05 07:36] LABS: Basophils % 0.5 %; Eosinophils # 0.3 K/mcL (0.0-0.6); Eosinophils % 4.4 %; Hematocrit 39.7 % (37.5-50.1); Hemoglobin 12.2 g/dL (12.9-16.9); Immature Granulocytes % 2.3 % (0-4); Lymphocytes # 1.6 K/mcL (0.6-4.6); Lymphocytes % 26.1 %; Mean Corpuscular HGB Conc 30.7 g/dL (31.6-35.5); Mean Corpuscular Volume 78.1 fL (83.0-100.0); Mean Platelet Volume 9.7 fL (9.4-12.4); Monocytes # 0.7 K/mcL (0.0-1.3); Monocytes % 11.3 %; Neutrophils # 3.4 K/mcL (1.6-8.9); Nucleated Red Blood Cells 0.3 /100 WBC (0); Platelet Count 147 K/mcL (140-400); Red Blood Count 5.08 M/mcL (4.19-5.50); Red Cell Distribution Width 15.3 % (11.5-14.5); Segmented Neutrophils % 55.4 %; White Blood Count 6.1 K/mcL (4.3-11.1)
[2022-02-05] MEDS: Cyanocobalamin (B-12) 1,000 MCG TABLET PO SCH (08:00)
[2022-02-05] MEDS: Multivit/Ca/Min/Fe/FA 1 TAB TABLET PO SCH (08:00)
[2022-02-05] MEDS: allopurinoL 100 MG TABLET PO SCH (08:01)
[2022-02-05] MEDS: Gabapentin 300 MG CAPSULE PO SCH ×2 (08:01→22:09)
[2022-02-05] MEDS ORDERED: 0.9 % Sodium Chloride 250 ML IVC PRN (12:26)
[2022-02-05] MEDS ORDERED: 0.9 % Sodium Chloride 2,000 ML PRIME SCH (12:30)
[2022-02-05 15:38] LABS: Albumin 3.3 g/dL (3.5-5.7); Albumin/Globulin Ratio 1.4 (1.1-2.2); Bilirubin,Total 0.4 mg/dL (0.3-1.0); Calcium 8.7 mg/dL (8.6-10.3); Chol/HDL Ratio 2.9 (0-4.9); Globulin 2.4 g/dL (2.4-3.5); Phosphorous 5.9 mg/dL (2.7-4.5); Potassium 4.7 mEq/L (3.5-5.1); Total Protein 5.7 g/dL (6.4-8.9)
[2022-02-05 16:06] LABS: Hepatitis B Surface Antibody 71.29 mIU/mL
[2022-02-05 16:17] LABS: Hepatitis B Surface Antigen Nonreactive (Nonreactive)
[2022-02-05] MEDS ORDERED: Vancomycin 1,500 MG/265 ML IV.SOLN IVPB ONE (18:00)
[2022-02-05] MEDS ORDERED: *HR* HYDROcodone/Acet 10/325 mg TABLET PO ONE (21:53)
[2022-02-06 03:39] LABS: Basophils % 0.3 %; Eosinophils # 0.2 K/mcL (0.0-0.6); Eosinophils % 3.2 %; Immature Granulocytes % 0.2 % (0-4); Lymphocytes # 1.3 K/mcL (0.6-4.6); Lymphocytes % 19.3 %; Mean Corpuscular HGB Conc 31.6 g/dL (31.6-35.5); Mean Corpuscular Volume 76.2 fL (83.0-100.0); Mean Platelet Volume 10.2 fL (9.4-12.4); Monocytes # 0.6 K/mcL (0.0-1.3); Monocytes % 9.3 %; Neutrophils # 4.5 K/mcL (1.6-8.9); Platelet Count 164 K/mcL (140-400); Red Blood Count 4.99 M/mcL (4.19-5.50); Red Cell Distribution Width 15.3 % (11.5-14.5); Segmented Neutrophils % 67.7 %; White Blood Count 6.6 K/mcL (4.3-11.1)
[2022-02-06 04:03] LABS: BUN/Creatinine Ratio 3 (6-26); Blood Urea Nitrogen 21 mg/dL (8-23); Calcium 9.2 mg/dL (8.6-10.3); Carbon Dioxide 22 mEq/L (23-29); Chloride 99 mEq/L (98-107); Glucose 74 mg/dL (70-105); Osmolality,Calculated 288 (280-300); Potassium 4.7 mEq/L (3.5-5.1); Sodium 138 mEq/L (136-145); eGFR For African Americans 9 (> 60); eGFR For Non-African Americans 7 (> 60)
[2022-02-06 04:14] LABS: Thyroid Stimulating Hormone < 0.010 mcIU/mL (0.340-5.600)
[2022-02-06] MEDS: Multivit/Ca/Min/Fe/FA 1 TAB TABLET PO SCH (07:50)
[2022-02-06] MEDS: Gabapentin 300 MG CAPSULE PO SCH ×2 (07:50→21:54)
[2022-02-06] MEDS: Cyanocobalamin (B-12) 1,000 MCG TABLET PO SCH (07:50)
[2022-02-06] MEDS: allopurinoL 100 MG TABLET PO SCH (07:50)
[2022-02-06] MEDS: Piperacillin/Tazobactam 3.375 GM in 0.9 % Sodium Chloride Mini Bag 100 ML IVPB SCH ×3 (07:51→21:53)
[2022-02-06] MEDS: *HR* Heparin 5,000 UNIT/ML VIAL SQ SCH ×2 (14:20→21:53)
[2022-02-06] MEDS ORDERED: *HR* OxyCODONE Immed Rel 5 MG TABLET PO PRN (14:24)
[2022-02-07 05:10] LABS: Basophils % 0.3 %; Eosinophils # 0.2 K/mcL (0.0-0.6); Eosinophils % 3.5 %; Hematocrit 37.6 % (37.5-50.1); Hemoglobin 11.7 g/dL (12.9-16.9); Immature Granulocytes % 0.3 % (0-4); Lymphocytes # 1.6 K/mcL (0.6-4.6); Lymphocytes % 28.5 %; Mean Corpuscular HGB Conc 31.1 g/dL (31.6-35.5); Mean Corpuscular Hemoglobin 23.7 pg (28.0-33.3); Mean Corpuscular Volume 76.1 fL (83.0-100.0); Mean Platelet Volume 9.6 fL (9.4-12.4); Monocytes # 0.6 K/mcL (0.0-1.3); Monocytes % 10.6 %; Neutrophils # 3.3 K/mcL (1.6-8.9); Platelet Count 164 K/mcL (140-400); Red Blood Count 4.94 M/mcL (4.19-5.50); Red Cell Distribution Width 15.1 % (11.5-14.5); Segmented Neutrophils % 56.8 %; White Blood Count 5.8 K/mcL (4.3-11.1)
[2022-02-07] MEDS: *HR* Heparin 5,000 UNIT/ML VIAL SQ SCH ×3 (05:19→21:14)
[2022-02-07 05:29] LABS: Calcium 9.5 mg/dL (8.6-10.3)
[2022-02-07 05:44] LABS: Triiodothyronine (T3) Free 3.02 pg/mL (2.50-3.90)
[2022-02-07] MEDS ORDERED: D5% in Water 1,000 ML IVC PRN (06:38)
[2022-02-07] MEDS ORDERED: *HR* Dextrose 50 % in Water (Syg) 50 ML SYRINGE IVP PRN (06:38)
[2022-02-07] MEDS ORDERED: Dextrose Gel 15 GM/37.5 ML TUBE PO PRN ×2 (06:38)
[2022-02-07] MEDS: Multivit/Ca/Min/Fe/FA 1 TAB TABLET PO SCH (07:36)
[2022-02-07] MEDS: Cyanocobalamin (B-12) 1,000 MCG TABLET PO SCH (07:37)
[2022-02-07] MEDS: Gabapentin 300 MG CAPSULE PO SCH ×2 (07:37→21:13)
[2022-02-07] MEDS: allopurinoL 100 MG TABLET PO SCH (07:37)
[2022-02-07] MEDS ORDERED: *HR* Midazolam HCl 2 MG/2 ML VIAL ONE (10:00)
[2022-02-07] MEDS ORDERED: *HR* FentaNYL (PF) 100 MCG/2 ML VIAL ONE (10:00)
[2022-02-07] MEDS ORDERED: *HR* Heparin 10,000 UNIT/10 ML VIAL ONE (10:00)
[2022-02-07] MEDS ORDERED: Heparin 1,000 UNITS/500 mL 500 ML ONE (10:00)
[2022-02-07] MEDS ORDERED: 0.9 % Sodium Chloride 1,000 ML ONE (10:01)
[2022-02-07] MEDS ORDERED: 0.9 % Sodium Chloride 250 ML IVC PRN (10:17)
[2022-02-07] MEDS ORDERED: Acetaminophen 325 MG TABLET PO PRN (11:01)
[2022-02-07] MEDS: Piperacillin/Tazobactam 3.375 GM in 0.9 % Sodium Chloride Mini Bag 100 ML IVPB SCH ×2 (12:57→21:14)
[2022-02-08 02:15] LABS: Hematocrit 37.1 % (37.5-50.1); Hemoglobin 11.6 g/dL (12.9-16.9); Mean Corpuscular HGB Conc 31.3 g/dL (31.6-35.5); Mean Corpuscular Hemoglobin 23.9 pg (28.0-33.3); Mean Corpuscular Volume 76.3 fL (83.0-100.0); Mean Platelet Volume 9.1 fL (9.4-12.4); Platelet Count 153 K/mcL (140-400); Red Blood Count 4.86 M/mcL (4.19-5.50); Red Cell Distribution Width 15.2 % (11.5-14.5); Segmented Neutrophils % 66.1 %; White Blood Count 5.4 K/mcL (4.3-11.1)
[2022-02-08 02:16] LABS: Basophils % 0.4 %; Eosinophils # 0.2 K/mcL (0.0-0.6); Eosinophils % 2.8 %; Immature Granulocytes % 0.4 % (0-4); Lymphocytes # 1.1 K/mcL (0.6-4.6); Monocytes # 0.5 K/mcL (0.0-1.3); Monocytes % 9.3 %; Neutrophils # 3.6 K/mcL (1.6-8.9)
[2022-02-08 02:32] LABS: Potassium 4.2 mEq/L (3.5-5.1)
[2022-02-08 04:19] VITALS: O2SAT 97
[2022-02-08] MEDS: *HR* Heparin 5,000 UNIT/ML VIAL SQ SCH (05:09)
[2022-02-08 06:46] VITALS: BP 118/78; PULSE 87; TEMP 97.7
[2022-02-08] MEDS: allopurinoL 100 MG TABLET PO SCH (08:10)
[2022-02-08] MEDS: Cyanocobalamin (B-12) 1,000 MCG TABLET PO SCH (08:10)
[2022-02-08] MEDS: Gabapentin 300 MG CAPSULE PO SCH (08:10)
[2022-02-08] MEDS: Piperacillin/Tazobactam 3.375 GM in 0.9 % Sodium Chloride Mini Bag 100 ML IVPB SCH (08:10)
== END 2022-02-08 11:04 | disposition home or self-care (01) | DRG 299 ==
LOC: EMEROOARM 11:32 → 2ANU 11:32
PROVIDERS: ADMIT Internal Medicine; ATTEND Internal Medicine